=== PATIENT | female | born 1955 | race Caucasian/White ===

== ENCOUNTER → 2017-02-03 | Outpatient (CLI) | payer BC ==
[~2017-02-03] MED LIST: CIPR500T78 PO; OXYC-12 PO; VNL75T PO
--- NOTE | 2017-02-03 15:38 | Diagnostic Imaging Report ---
PROCEDURE: CT chest without contrast. TECHNIQUE: Multiple contiguous axial images were obtained through the chest without the use of intravenous contrast. Low dose protocol is utilized. INDICATION: Tobacco use. FINDINGS: There is a 7 mm nonspecific nodule seen in the left lung apex. A 3 mm nodule along the minor fissure is also seen. There are mild fibrotic changes in the subpleural areas particularly within the apices noted. Mild paraseptal emphysema changes also seen in the upper lungs. There is no significant interstitial lung disease, bronchiectasis or airspace consolidation noted. The heart size is normal. No pericardial or pleural effusion. There is coronary artery calcification seen along the proximal LAD. There is no mediastinal mass or significantly enlarged lymph node. No axillary lymphadenopathy. The osseous structures appear unremarkable. IMPRESSION: 1. Indeterminate 7 mm nodule in the left lung apex. No prior studies are available for comparison. A followup exam in 3 months is recommended to ensure stability. 2. Mild upper lobe predominant emphysema changes. Dictated by: Dictated on workstation # [id number]
== END ==
LOC: RAD 14:02
PROVIDERS: ATTEND Internal Medicine
DX: R91.1 Solitary pulmonary nodule (principal); Z72.0 Tobacco use
CPT/HCPCS: 71250

== ENCOUNTER → 2017-05-13 | Outpatient (CLI) | payer BC ==
--- NOTE | 2017-05-13 09:43 | Diagnostic Imaging Report ---
PROCEDURE: CT chest without contrast. TECHNIQUE: Multiple contiguous axial images were obtained through the chest without the use of intravenous contrast. INDICATION: Followup pulmonary nodule. COMPARISON: 02/03/2017. FINDINGS: On the prior study, a 7 mm nodule was seen in the left lung apex. It is again noted and measures 6 mm on the current exam with no definite change. There is pleural thickening in the apices bilaterally. No significant consolidation, mass, or suspicious nodule is seen otherwise. The heart size is normal. No pericardial or pleural effusion. The thoracic aorta is normal in caliber. No mediastinal mass or significantly enlarged lymph node is seen. No axillary lymphadenopathy. Sections in the upper abdomen appear unremarkable. The osseous structures demonstrate mild right convexity scoliotic curvature. IMPRESSION: Essentially stable 6 mm left lung apex nodule which remains indeterminate. A followup CT chest with low-dose protocol is recommended in 9 to 12 months to document further stability. Dictated by: Dictated on workstation # [id number]
== END ==
LOC: RAD 08:36
PROVIDERS: ATTEND Internal Medicine
DX: R91.1 Solitary pulmonary nodule (principal)
CPT/HCPCS: 71250

== ENCOUNTER → 2017-10-28 | Outpatient (CLI) | payer BC ==
--- NOTE | 2017-10-28 12:43 | Diagnostic Imaging Report ---
PROCEDURE: CT abdomen and pelvis without contrast. TECHNIQUE: Multiple contiguous axial images were obtained through the abdomen and pelvis without the use of intravenous contrast. INDICATION: Left lower quadrant pain, history of appendectomy. COMPARISON: Exam compared to 03/10/2014. FINDINGS: There is some mild edema and infiltration of the right perinephric fat. There is a stone within the right renal lower pole calyx measuring 2 mm. There is suggestion of some mild urothelial thickening of the proximal right ureter and renal pelvis. No opaque ureteral stone is found. Vascular calcifications are unchanged in distribution from prior. Findings may reflect right-sided urinary tract infection or recently passed stone, correlate clinically. The left kidney was nonfocal and negative. There are postsurgical changes of an appendectomy without evidence for stump appendicitis. There is no bowel obstruction. No ascites, abscess, hematoma, or fluid collection. The uterus, adnexa, and urinary bladder appeared normal. The aortoiliac vessels are calcified but nonaneurysmal. Liver, gallbladder, spleen, adrenals, and pancreas are negative. IMPRESSION: 1. Right renal calculus. Questionable findings of right urothelial thickening and mild perinephric edema. Findings could be seen in the setting of infection or recently passed stone, correlate clinically. 2. Negative left kidney. Previous appendectomy. Remaining abdominopelvic solid and hollow viscera are unremarkable. Dictated by: Dictated on workstation # [id number]
== END ==
LOC: RAD 11:59
PROVIDERS: ATTEND Internal Medicine
DX: N20.0 Calculus of kidney (principal); Z90.49 Acquired absence of other specified parts of digestive tract
CPT/HCPCS: 74176

== ENCOUNTER → 2017-10-29 | Outpatient (CLI) | payer BC ==
[~2017-10-29] VITALS: Ht 162.6 cm; Wt 52.2 kg
[~2017-10-29] MED LIST changes: +ACETAMINOPHEN 325 MG TABLET/CAPLET (TYLENOL) PO PRN; +D5 LR IV SOLUTION 1,000 ML IV ONE; +D5 LR IV SOLUTION 1,000 ML IV SCH; +LEVOFLOXACIN 500 MG/D5W 100 ML (PRE-MIX) IV ONE
[2017-10-29 14:11] LABS: BASOPHILS % (AUTO) 0 % (0-10); EOSINOPHILS % (AUTO) 0 % (0-10); HEMATOCRIT 35 % (35-52); HEMOGLOBIN 12.5 G/DL (11.5-16.0); LYMPHOCYTES # (AUTO) 1.7 X 10^3 (1.0-4.0); LYMPHOCYTES % (AUTO) 15 % (12-44); MEAN CORPUSCULAR HEMOGLOBIN 32 PG (25-34); MEAN CORPUSCULAR HGB CONC 36 G/DL (32-36); MEAN CORPUSCULAR VOLUME 89 FL (80-99); MEAN PLATELET VOLUME 9.4 FL (7.4-10.4); MONOCYTES # (AUTO) 1.2 X 10^3 (0.0-1.0); MONOCYTES % (AUTO) 11 % (0-12); NEUTROPHILS # (AUTO) 8.4 X 10^3 (1.8-7.8); NEUTROPHILS % (AUTO) 74 % (42-75); PLATELET COUNT 318 10^3/uL (130-400); RED BLOOD COUNT 3.86 10^6/uL (4.35-5.85); RED CELL DISTRIBUTION WIDTH 11.3 % (10.0-14.5); WHITE BLOOD COUNT 11.4 10^3/uL (4.3-11.0)
[2017-10-29 17:50] VITALS: BP 124/71
[2017-10-29 18:27] VITALS: BP 124/71
== END ==
LOC: SDC 13:41
PROVIDERS: ATTEND Internal Medicine
DX: N10 Acute pyelonephritis (principal); E86.0 Dehydration
CPT/HCPCS: 36415; 85025; 96361; 96365; 96375

== ENCOUNTER → 2019-02-15 | Outpatient (CLI) | payer BC ==
[~2019-02-15] MED LIST changes: -ACETAMINOPHEN 325 MG TABLET/CAPLET (TYLENOL) PO PRN; -D5 LR IV SOLUTION 1,000 ML IV ONE; -D5 LR IV SOLUTION 1,000 ML IV SCH; -LEVOFLOXACIN 500 MG/D5W 100 ML (PRE-MIX) IV ONE
--- NOTE | 2019-02-15 10:15 | Diagnostic Imaging Report ---
CT CHEST SCREENING WO TECHNIQUE: Low-dose unenhanced CT of the chest was performed according to the screening protocol. Coronal MIP and sagittal MPR reformats are created. Automatic exposure controls were utilized to keep dose as low as reasonably achievable. INDICATION: Current smoker with 17-vhpg-xhlo history of smoking. COMPARISON: CT chest from 05/13/2017 FINDINGS: Pulmonary findings: There is a small amount of retained secretions within the trachea. Biapical subpleural scarring is unchanged. Left apical 6 mm noncalcified nodule is unchanged. No new pulmonary mass or consolidation. No new pulmonary nodules. Extrapulmonary findings: No axillary lymphadenopathy. No mediastinal, discrete hilar or juxtaphrenic lymphadenopathy. Heart is normal in size without pericardial effusion. A few conspicuous mediastinal lymph nodes are unchanged since prior exam and likely reactive in nature. No pericardial effusion. Scattered coronary artery calcifications are unchanged. Ectasia of the ascending aorta measuring up to 3.6 cm is also unchanged. No concerning focal osseous lesions. IMPRESSION: 1. No change in CT chest to indicate clinically active lung cancer. Lung-RADS category: 2 - Benign appearance or behavior Modifier: None. Recommendations: Continued annual screening with low-dose CT in 12 months. Dictated by: Dictated on workstation # [id number]
== END ==
LOC: RAD 07:29
PROVIDERS: ATTEND Internal Medicine
DX: Z12.2 Encounter for screening for malignant neoplasm of respiratory organs (principal); F17.210 Nicotine dependence, cigarettes, uncomplicated

== ENCOUNTER 2019-09-28 09:16 | Emergency (ER) | payer BC ==
[~2019-09-28] VITALS: Ht 162 cm; Wt 50.9 kg
--- NOTE | 2019-09-28 09:36 | ED Cough/URI ---
General Chief Complaint: Cough/Cold/Flu Symptoms Stated Complaint: FLU A POSITIVE Source: patient Exam Limitations: no limitations History of Present Illness Date Seen by Provider: Sep 28, 2019 Time Seen by Provider: 09:19 Initial Comments Patient presents ER by private conveyance with chief complaint of nausea vomiting or appetite. Thursday, 5 days ago she was diagnosed with influenza A at urgent care. They said she had bronchitis of a put her on amoxicillin and gave her steroids. She does not have a history of COPD. She does smoke about a pack per day. She has decreased her smoking. She does not have any wheezing or shortness of air just occasional cough is nonproductive. She's been using Tylenol and ibuprofen. She typically takes venlafaxine for mood and is followed by Dr. Lopez. No other significant medical history. She is on inhalers. Not having any chest pain diarrhea or constipation. She is concerned about her nausea. She did not initiate Tamiflu. Allergies and Home Medications Allergies Coded Allergies: No Known Drug Allergies (Unverified , 03/10/14) Home Medications Ciprofloxacin HCl 500 Mg Tablet, 500 MG PO BID Prescribed by: SAHARA THOMAS on 03/10/141709 Oxycodone Hcl/Acetaminophen 1 Each Tablet, 1-2 EACH PO Q4H Prescribed by: SAHARA THOMAS on 03/10/14 171 Venlafaxine Hcl 75 Mg Tab, 150 MG PO DAILY, (Reported) TAKES 2 (75MG) TABLETS DAILY Patient Home Medication List Home Medication List Reviewed: Yes Review of Systems Review of Systems Constitutional: chills; No diaphoresis; fever, malaise EENTM: No ear discharge, No ear pain Respiratory: cough; No short of breath Cardiovascular: No chest pain, No edema Gastrointestinal: No abdominal pain, No constipation, No diarrhea; nausea, vomiting Genitourinary: No discharge, No dysuria Musculoskeletal: No back pain, No joint pain Psychiatric/Neurological: Denies Anxiety, Denies Depressed Past Hunqnbk-Slkqem-Sxmbst Hx Patient Social History Alcohol Use: Occasionally Uses Recreational Drug Use: No Smoking Status: Current Everyday Smoker Type Used: Cigarettes (pack per day) Recent Foreign Travel: No Contact w/Someone Who Travel: No Past Medical History Reproductive Disorders: No Sexually Transmitted Disease: No HIV/AIDS: No Adverse Reaction/Blood Tranf: No Physical Exam Vital Signs - First Documented 09/28/19 09:31 Temp 36.4 Pulse 73 Resp 16 B/P (MAP) 116/86 (96) Pulse Ox 98 Capillary Refill : Height: 5'4.00" Weight: 115lbs. 0.0oz. 52.725993ly; BMI Method: General Appearance: WD/WN, no apparent distress Eyes: Bilateral Eye Normal Inspection, Bilateral Eye PERRL, Bilateral Eye EOMI HEENT: PERRL/EOMI, normal ENT inspection, pharynx normal Neck: full range of motion, supple, normal inspection Respiratory: lungs clear, normal breath sounds, no respiratory distress, no accessory muscle use Cardiovascular: normal peripheral pulses, regular rate, rhythm Gastrointestinal: normal bowel sounds, non tender, soft Neurologic/Psychiatric: alert, normal mood/affect, oriented x 3 Skin: normal color, warm/dry Progress/Results/Core Measures Suspected Sepsis SIRS Temperature: Pulse: Respiratory Rate: Blood Pressure / Mean: Results/Orders My Orders Orders - KYE FORREST Ondansetron Oral Dissolve Tab (Zofran (09/28/19 09:45) Medications Given in ED Current Medications Medications Dose Ordered Sig/Summer Route Start Time Stop Time Status Last Admin Dose Admin Ondansetron HCl 4 mg ONCE ONCE PO 09/28/19 09:45 09/28/19 09:46 DC 09/28/19 09:40 4 MG Vital Signs/I&O 09/28/19 09:31 Temp 36.4 Pulse 73 Resp 16 B/P (MAP) 116/86 (96) Pulse Ox 98 Capillary Refill : Progress Note #1: Time: 09:34 Progress Note Ondansetron 4 mg sublingual tablet. If this works for her than we'll set her up with Zofran outpatient. She has aseptic vital signs and no other systemic symptoms besides influenza-like symptoms. She is not having any wheezing shortness of breath hypoxia or even subjective dyspnea. Her main concern that brought her here today is her nausea. At this time her oral mucosa is mildly dry but we can get her to tolerate oral fluids with Zofran she should be able to handle this on her own. If not then we'll obtain some labs give her a IV fluid bolus. Progress Note #2: Time: 10:05 Progress Note Nausea is gone she's feeling much better and able to tolerate and keep water down. Departure Impression Primary Impression: Influenza A Additional Impression: Nausea and vomiting Qualified Codes: R11.2 - Nausea with vomiting, unspecified Disposition: HOME, SELF-CARE Condition: Stable Departure-Patient Inst. Decision time for Depature: 10:05 Referrals: YING LOPEZ DO (PCP/Family) Primary Care Physician Patient Instructions: Flu, Adult (DC), Nausea and Vomiting, Adult (DC) Add. Discharge Instructions: Zofran 1 tablet under the tongue every 6 hours as needed for nausea or vomiting. All discharge instructions reviewed with patient and/or family. Voiced understanding. Scripts Ondansetron (Ondansetron Odt) 4 Mg Tab.rapdis 4 MG PO Q6H PRN for NAUSEA/VOMITING, #20 TAB 0 Refills Prov: KYE FORREST 09/28/19 KYE FORREST Sep 28, 2019 09:36
[2019-09-28] MEDS ORDERED: ONDANSETRON 4 MG (ZOFRAN) ORAL DISSOLVE TAB PO ONE (09:45)
[2019-09-28] MEDS ORDERED: ONDA4TAB11 PO (10:06)
[2019-09-28 10:08] VITALS: BP 120/67
== END 2019-09-28 10:08 | disposition home or self-care (01) ==
LOC: EDUNIT# 09:16 → ER 09:17
DX: J10.1 Influenza due to other identified influenza virus with other respiratory manifestations (principal); R11.2 Nausea with vomiting, unspecified; F17.210 Nicotine dependence, cigarettes, uncomplicated
CPT/HCPCS: 99283

== ENCOUNTER → 2021-03-19 | Outpatient (CLI) | payer BC ==
[~2021-03-19] MED LIST changes: +ONDA4TAB11 PO
--- NOTE | 2021-03-19 18:16 | Diagnostic Imaging Report ---
PROCEDURE: CT left upper extremity without contrast. TECHNIQUE: Multiple contiguous axial images were obtained through the left upper extremity without the use of intravenous contrast. Auto Exposure Controls were utilized during the CT exam to meet ALARA standards for radiation dose reduction. INDICATION: Soft tissue swelling in the anterior aspect of the upper arm. COMPARISON: None available. FINDINGS: In the mid aspect of the upper arm, there is a hypodense fluid collection located in the subcutaneous fat abutting the superficial fascia of the biceps muscle. This collection measures 12 x 7 x 25 mm and has an elliptical configuration. There are no aggressive features associated with the mass as it extends along the superficial fascia rather than invades underlying muscle. No additional soft tissue mass is appreciated in the upper arm by CT. The humerus is without fracture, endosteal scalloping or periosteal reaction. Glenohumeral alignment is normal. Elbow is also grossly normal. No left axillary lymphadenopathy. IMPRESSION: 1. At the site of palpable concern in the mid and anterior aspect of the left upper extremity, there is a well-circumscribed low-attenuation collection in the subcutaneous fat. This most likely represents a hematoma or other chronic collection. If this does not resolve over the next 6-8 weeks, thin follow-up MRI of the upper extremity without and with IV contrast would be suggested to evaluate for the possibility of a cystic neoplasm. Dictated by: Dictated on workstation # [id number]
== END ==
LOC: RAD 13:15
PROVIDERS: ATTEND Nurse Practitioner Family
DX: R22.32 Localized swelling, mass and lump, left upper limb (principal)
CPT/HCPCS: 73200

== ENCOUNTER → 2022-03-26 | Outpatient (CLI) | payer BC ==
--- NOTE | 2022-03-26 11:50 | Diagnostic Imaging Report ---
EXAMINATION: CT Lung Screening. INDICATION: [id number] smoking history. TECHNIQUE: Noncontrast, low-dose CT imaging performed according to the lung cancer screening protocol. Auto Exposure Controls were utilize during the CT exam to meet ALARA standards for radiation dose reduction. COMPARISON: 02/15/2019. FINDINGS: Air trapping, COPD, and biapical pleural-parenchymal scarring with zones of bronchiectasis are chronic. There is some low-density frothy debris adherent to the trachea most consistent with a small amount of mucus. No suspicious endobronchial filling defect. No findings to suggest lung cancer. No new or suspicious nodularity. There is no axillary, hilar, or mediastinal lymphadenopathy. Some paraseptal cyst formation in the upper lobes is chronic. Atherosclerotic aorta is stable in caliber. No chest wall pathology. Upper abdomen appeared nonacute. IMPRESSION: Stable chronic findings. No features to suggest lung cancer. LUNG-RADS CATEGORY: 2 - benign. MODIFIER: None. OTHER SIGNIFICANT FINDINGS: Chronic COPD. Dictated by: Dictated on workstation # [id number]
== END ==
LOC: RAD 10:37
PROVIDERS: ATTEND Internal Medicine
DX: Z12.2 Encounter for screening for malignant neoplasm of respiratory organs (principal); Z87.891 Personal history of nicotine dependence
CPT/HCPCS: 71271

== ENCOUNTER → 2022-08-01 | Outpatient (CLI) | payer MEDICARE, OTHER ==
[~2022-08-01] MED LIST changes: +AZIT250T12 PO; +BENZ200C51 PO; +CATHETER FLUSH 10 ML SYR IVP PRN
[2022-08-01 08:11] VITALS: BP 160/89
== END ==
LOC: CARD 07:00
PROVIDERS: ATTEND Internal Medicine
DX: I25.10 Atherosclerotic heart disease of native coronary artery without angina pectoris (principal); H74.8X1 Other specified disorders of right middle ear and mastoid
CPT/HCPCS: 78452; 93017; A9502

== ENCOUNTER 2022-08-03 09:51 | Emergency (ER) | payer MEDICARE, OTHER ==
[~2022-08-03 09:51] MED LIST changes: -AZIT250T12 PO; -BENZ200C51 PO; -CATHETER FLUSH 10 ML SYR IVP PRN
--- NOTE | 2022-08-03 10:27 | ED General ---
General Chief Complaint: Cough/Cold/Flu Symptoms Stated Complaint: COUGH/LETHARGIC Nursing Triage Note: PT AMB TO RM 5 WITH C/O A COUGH FOR 3-4 DAYS, UNABLE TO SLEEP FROM COUGHING AND FEELING MORE TIRED THAN USUAL Source of Information: Patient Exam Limitations: No Limitations History of Present Illness Date Seen by Provider: Aug 03, 2022 Time Seen by Provider: 09:56 Initial Comments This is 66-year-old woman presents to the emergency room with complaints of cough for the past 3 or 4 days. Cough is nonstop and very irritating. This morning she woke up with drainage from her eyes causing her lids to stick together. She has additionally had headache. She has marginally low blood pressure at this time and states her urine has been dark. Her heart rate is mildly tachycardic at around 100 bpm. She has had a little bit of lightheadedness and dizziness upon standing. Oxygen saturation is normal. She is a smoker but denies any other significant chronic health problems. Dr. Shaw is her primary care provider. Allergies and Home Medications Allergies Coded Allergies: No Known Drug Allergies (Unverified , 03/10/14) Patient Home Medication List Home Medication List Reviewed: Yes Azithromycin (Azithromycin) 250 Mg Tablet, 250 MG PO UD Prescribed by: JAMAR SWEET on 08/03/22 1127 Benzonatate (Benzonatate) 200 Mg Capsule, 200 MG PO TID PRN for COUGH Prescribed by: JAMAR SWEET on 08/03/22 1127 Ciprofloxacin HCl (Cipro) 500 Mg Tablet, 500 MG PO BID Prescribed by: SAHARA THOMAS on 03/10/14 1710 Ondansetron (Ondansetron Odt) 4 Mg Tab.rapdis, 4 MG PO Q6H PRN for NAUSEA/VOMITING Prescribed by: KYE FORREST on 09/28/19 1006 Oxycodone Hcl/Acetaminophen (Percocet 5-325 Mg Tablet) 1 Each Tablet, 1-2 EACH PO Q4H Prescribed by: SAHARA THOMAS on 03/10/14 171 Venlafaxine Hcl (Effexor Tab) 75 Mg Tab, 150 MG PO DAILY, (Reported) Entered as Reported by: SARY RUIZ on 03/10/14 0806 Review of Systems Review of Systems Constitutional: no symptoms reported EENTM: no symptoms reported Respiratory: see HPI Cardiovascular: see HPI Gastrointestinal: no symptoms reported Genitourinary: see HPI : No Musculoskeletal: no symptoms reported Psychiatric/Neurological: See HPI Hematologic/Lymphatic: No Symptoms Reported Immunological/Allergic: no symptoms reported Past Fiptakh-Qesojh-Ilnlml Hx Patient Social History Tobacco Use?: Yes Tobacco type used: Cigarettes Smoking Status: Current Everyday Smoker Substance use?: No Alcohol Use?: Yes Alcohol Frequency: Several times a month Pt feels they are or have been: No Immunizations Up To Date Influenza Vaccine Up-to-Date: Yes; Up-to-Date First/Initial COVID19 Vaccinat: YES Second COVID19 Vaccination Nicola: YES Third COVID19 Vaccination Date: YES Past Medical History Surgery/Hospitalization HX: ANXIETY C-ESCTION, APPY Surgeries: Yes Appendectomy, Section Respiratory: No Cardiac: No Neurological: No : No Reproductive Disorders: No Sexually Transmitted Disease: No HIV/AIDS: No Genitourinary: No Gastrointestinal: No Musculoskeletal: No Endocrine: No Cancer: No Psychosocial: Yes Anxiety Integumentary: No Blood Disorders: No Adverse Reaction/Blood Tranf: No Physical Exam Vital Signs Vital Signs - First Documented 08/03/22 10:00 Temp 36.9 Pulse 92 Resp 18 B/P (MAP) 91/66 (74) Capillary Refill : Height, Weight, BMI Height: 5'4.00" Weight: 115lbs. 0.0oz. 52.219644nw; 19.00 BMI Method: General Appearance: No Apparent Distress, WD/WN, Thin HEENT: PERRL/EOMI, Normal ENT Inspection, Other (Oropharynx somewhat dry) Neck: Normal Inspection; No JVD Respiratory: No Accessory Muscle Use, No Respiratory Distress; No Crackles; Rhonci (Throughout right lung), Other (Forced expiration triggers cough) Cardiovascular: No Edema, No Murmur, Tachycardia (Mild) Gastrointestinal: No Organomegaly, Non Tender, Soft Extremity: Normal Inspection, No Pedal Edema Neurologic/Psychiatric: Alert, Oriented x3, No Motor/Sensory Deficits, Normal Mood/Affect Skin: Normal Color, Warm/Dry Progress/Results/Core Measures Suspected Sepsis SIRS Temperature: Pulse: 92 Respiratory Rate: 18 Laboratory Tests 08/03/22 10:20: White Blood Count 11.8H Blood Pressure 91 /66 Mean: 74 Laboratory Tests 08/03/22 10:20: Creatinine 0.65, Platelet Count 347 Results/Orders Lab Results Laboratory Tests Test 08/03/22 10:03 08/03/22 10:20 Range/Units Influenza Type A (RT-PCR) Not Detected Not Detecte Influenza Type B (RT-PCR) Not Detected Not Detecte SARS-CoV-2 RNA (RT-PCR) Not Detected Not Detecte White Blood Count 11.8 H 4.3-11.0 10^3/uL Red Blood Count 4.08 3.80-5.11 10^6/uL Hemoglobin 13.5 11.5-16.0 g/dL Hematocrit 38 35-52 % Mean Corpuscular Volume 94 80-99 fL Mean Corpuscular Hemoglobin 33 25-34 pg Mean Corpuscular Hemoglobin Concent 35 32-36 g/dL Red Cell Distribution Width 11.2 10.0-14.5 % Platelet Count 347 130-400 10^3/uL Mean Platelet Volume 9.1 9.0-12.2 fL Immature Granulocyte % (Auto) 0 % Neutrophils (%) (Auto) 70 42-75 % Lymphocytes (%) (Auto) 18 12-44 % Monocytes (%) (Auto) 11 0-12 % Eosinophils (%) (Auto) 1 0-10 % Basophils (%) (Auto) 0 0-10 % Neutrophils # (Auto) 8.3 H 1.8-7.8 10^3/uL Lymphocytes # (Auto) 2.1 1.0-4.0 10^3/uL Monocytes # (Auto) 1.3 H 0.0-1.0 10^3/uL Eosinophils # (Auto) 0.1 0.0-0.3 10^3/uL Basophils # (Auto) 0.0 0.0-0.1 10^3/uL Immature Granulocyte # (Auto) 0.0 0.0-0.1 10^3/uL Sodium Level 137 135-145 MMOL/L Potassium Level 3.7 3.6-5.0 MMOL/L Chloride Level 103 98-107 MMOL/L Carbon Dioxide Level 25 21-32 MMOL/L Anion Gap 9 5-14 MMOL/L Blood Urea Nitrogen 8 7-18 MG/DL Creatinine 0.65 0.60-1.30 MG/DL Estimat Glomerular Filtration Rate 98 BUN/Creatinine Ratio 12 Glucose Level 93 70-105 MG/DL Calcium Level 9.3 8.5-10.1 MG/DL Magnesium Level 1.8 1.6-2.4 MG/DL C-Reactive Protein High Sensitivity 12.06 H 0.00-0.50 MG/DL My Orders Orders - JAMAR PEGUERO MD Covid 19 Inhouse Test (08/03/22 09:56) Influenza A And B By Pcr (08/03/22 09:56) Basic Metabolic Panel (08/03/22 10:18) Cbc With Automated Diff (08/03/22 10:18) Magnesium (08/03/22 10:18) Ed Iv/Invasive Line Start (08/03/22 10:18) Lactated Ringers (Lr 1000 Ml Iv Solution (08/03/22 10:30) Benzonatate Capsule (Tessalon Perles) (08/03/22 10:30) Albuterol Inhaler (Albuterol) (08/03/22 14:00) Hs C Reactive Protein (08/03/22 10:20) Chest 1 View, Ap/Pa Only (08/03/22 10:20) Rx-Albuterol Inhaler (Rx-Ventolin Hfa In (08/03/22 10:29) Medications Given in ED Current Medications Medications Dose Ordered Sig/Summer Route Start Time Stop Time Status Last Admin Dose Admin Albuterol Sulfate 4 PUFFS RTQ4HR ONCE IH 08/03/22 14:00 08/03/22 11:39 DC 08/03/22 10:32 8.5 GM Benzonatate 200 mg ONCE ONCE PO 08/03/22 10:30 08/03/22 10:31 DC 08/03/22 10:27 200 MG Lactated Ringer's 1,000 ml @ 0 mls/hr Q0M ONCE IV 08/03/22 10:30 08/03/22 10:31 DC 08/03/22 10:27 1,000 MLS/HR Vital Signs/I&O 08/03/22 08/03/22 10:00 11:36 Temp 36.9 36.9 Pulse 92 91 Resp 18 18 B/P (MAP) 91/66 (74) 113/80 Capillary Refill : Blood Pressure Mean: 74 Progress Note #1: Time: 10:26 Progress Note Patient was interviewed and examined. COVID and influenza screening are pending. She will be treated with Tessalon Perles and an albuterol inhaler. Chest x-ray is pending. Due to her marginal blood pressure and tachycardia, she is being hydrated with a liter of LR. Basic labs with CBC, BMP, magnesium, and CRP are being obtained. Progress Note #2: Progress Note X-ray read favored chronic processes. However, there was mild elevation in WBC and moderate elevation in CRP. This was concerning for possible developing pneumonia. Heart rate and blood pressure improved significantly with a liter of IV fluid. We discussed the importance of pushing oral fluids while ill because of reduced thirst drive. See discharge instructions for further discussion. Diagnostic Imaging Diagonstic Imaging: Xray Plain Films/CT/US/NM/MRI: chest Comments Chest x-ray viewed by me and report reviewed. See report below: NAME: [facility] REC#: [id number] PT STATUS: REG ER : 1955 PHYSICIAN: JAMAR PEGUERO MD ADMIT DATE: 08/03/22/ER Draft Date of Exam:08/03/22 CHEST 1 VIEW, AP/PA ONLY INDICATION: Cough COMPARISON: CT dated 03/26/2022. TECHNIQUE: Single radiograph of the chest dated 08/03/2022. FINDINGS: The cardiac silhouette is within normal limits in size. No significant pulmonary vascular congestion. Minimal background interstitial lung changes are again identified without new focal pulmonary opacity. No pleural effusion. No pneumothorax. Biapical pleural parenchymal scarring. No acute osseous abnormality. IMPRESSION: Minimal background chronic interstitial lung changes, felt to relate to chronic interstitial lung disease without superimposed acute cardiopulmonary abnormality. Dictated on workstation # [id number] Dict: 08/03/22 1053 Trans: 08/03/22 1101 CVB [id number] Interpreted by: BO TINSLEY MD Departure Impression Primary Impression: Pneumonia Qualified Codes: J18.9 - Pneumonia, unspecified organism Additional Impressions: Hypovolemia Bronchospasm Disposition: HOME, SELF-CARE Condition: Improved Departure-Patient Inst. Decision time for Depature: 11:24 Referrals: YING SHAW DO (PCP/Family) Primary Care Physician Patient Instructions: Community-Acquired Pneumonia in Adults, Quitting Smoking ED Add. Discharge Instructions: Drink plenty of clear liquids to stay well-hydrated. Complete the entire 5-day course of your antibiotics. You will take 2 tablets today and then 1 tablet daily days 2 through 5. Use your inhaler 1 to 4 puffs every 4 hours as needed for wheezing, uncontrolled coughing, or shortness of air. If you require more frequent dosing, return to the emergency room. You may use ibuprofen up to 400 mg every 6 hours as needed and/or Tylenol (acetaminophen) up to 650 mg every 6 hours as needed for pain. Use the Tessalon Perles (benzonatate) as prescribed for cough. Work toward quitting smoking as rapidly as possible. Please seek assistance from your primary care provider if you are unable to accomplish quitting on your own. See resources attached to this discharge packet. Return to care if you have worsening symptoms despite following these instructions. All discharge instructions reviewed with patient and/or family. Voiced understanding. Scripts Benzonatate (Benzonatate) 200 Mg Capsule 200 MG PO TID PRN for COUGH, #15 CAP Prov: JAMAR PEGUERO MD 08/03/22 Azithromycin (Azithromycin) 250 Mg Tablet 250 MG PO UD, #6 TAB TAKE 2 TABLETS ON DAY ONE THEN TAKE 1 TABLET DAILY FOR FOUR MORE DAYS Prov: JAMAR PEGUERO MD 08/03/22 Copy Copies To 1: YING SHAW JOSHUA T MD Aug 03, 2022 10:27
[2022-08-03] MEDS ORDERED: RX-ALBUTEROL INHALER 8.5 GM HFA (PROAIR) IH ONE (10:29)
[2022-08-03] MEDS ORDERED: LACTATED RINGERS 1,000 ML IV ONE (10:30)
[2022-08-03] MEDS ORDERED: BENZONATATE 100 MG (TESSALON) CAPSULE PO ONE (10:30)
[2022-08-03 10:31] LABS: BASOPHILS % (AUTO) 0 % (0-10); EOSINOPHILS # (AUTO) 0.1 10^3/uL (0.0-0.3); EOSINOPHILS % (AUTO) 1 % (0-10); HEMATOCRIT 38 % (35-52); HEMOGLOBIN 13.5 g/dL (11.5-16.0); LYMPHOCYTES # (AUTO) 2.1 10^3/uL (1.0-4.0); LYMPHOCYTES % (AUTO) 18 % (12-44); MEAN CORPUSCULAR HEMOGLOBIN 33 pg (25-34); MEAN CORPUSCULAR HGB CONC 35 g/dL (32-36); MEAN CORPUSCULAR VOLUME 94 fL (80-99); MEAN PLATELET VOLUME 9.1 fL (9.0-12.2); MONOCYTES # (AUTO) 1.3 10^3/uL (0.0-1.0); MONOCYTES % (AUTO) 11 % (0-12); NEUTROPHILS # (AUTO) 8.3 10^3/uL (1.8-7.8); NEUTROPHILS % (AUTO) 70 % (42-75); PLATELET COUNT 347 10^3/uL (130-400); WHITE BLOOD COUNT 11.8 10^3/uL (4.3-11.0)
[2022-08-03 10:48] LABS: CALCIUM 9.3 MG/DL (8.5-10.1); CREATININE SERUM 0.65 MG/DL (0.60-1.30); MAGNESIUM 1.8 MG/DL (1.6-2.4); POTASSIUM 3.7 MMOL/L (3.6-5.0)
--- NOTE | 2022-08-03 11:01 | Diagnostic Imaging Report ---
INDICATION: Cough COMPARISON: CT dated 03/26/2022. TECHNIQUE: Single radiograph of the chest dated 08/03/2022. FINDINGS: The cardiac silhouette is within normal limits in size. No significant pulmonary vascular congestion. Minimal background interstitial lung changes are again identified without new focal pulmonary opacity. No pleural effusion. No pneumothorax. Biapical pleural parenchymal scarring. No acute osseous abnormality. IMPRESSION: Minimal background chronic interstitial lung changes, felt to relate to chronic interstitial lung disease without superimposed acute cardiopulmonary abnormality. Dictated by: Dictated on workstation # [id number]
[2022-08-03] MEDS ORDERED: AZIT250T12 PO (11:27)
[2022-08-03] MEDS ORDERED: BENZ200C51 PO (11:27)
[2022-08-03 11:36] VITALS: BP 113/80
[2022-08-03] MEDS ORDERED: RT-ALBUTEROL HFA 8.5 GM INHALER IH ONE (14:00)
== END 2022-08-03 11:39 | disposition home or self-care (01) ==
LOC: EDUNIT# 09:51 → ER 09:53
DX: J18.9 Pneumonia, unspecified organism (principal); E86.1 Hypovolemia; J98.01 Acute bronchospasm; R03.1 Nonspecific low blood-pressure reading; F17.210 Nicotine dependence, cigarettes, uncomplicated; Z20.822 Contact with and (suspected) exposure to COVID-19
CPT/HCPCS: 36415; 71045; 80048; 83735; 85025; 86141; 87636; 94640